=== PATIENT | female | born 1940 | race Caucasian/White ===

== ENCOUNTER 2022-06-01 11:30 | Outpatient (RCR) | payer MEDICARE, BC, SELFPAY | END 2022-06-03 08:44 | disposition home or self-care (01) | PROVIDERS: PCP Family Medicine; Visit Provider Family Medicine | DX: M54.16 Radiculopathy, lumbar region (principal); Z51.89 Encounter for other specified aftercare | CPT/HCPCS: 97110; 97112; 97140; 97162 ==

== ENCOUNTER 2023-08-10 11:30 | Outpatient (RCR) | payer MEDICARE, BC, SELFPAY ==
--- NOTE | 2023-05-05 17:25 | PT.OPEX ---
PT [facility] Outpatient Eval PT [facility] Outpatient Eval Start: 05/05/23 10:54 Freq: Status: Active Protocol: Document 05/05/23 16:51 MARINA (Rec: 05/05/23 17:22 MARINA [id number]) E-signed By Zoe Forbes PT Physical Therapy Outpatient Evaluation Insurance Information Recert Due Date 08/02/23 Insurance Name Medicare B,Exmovere Cross/Exmovere Shield Insurance Information/Comments MEDICARE/BC Medical Diagnosis MECHANICAL LOW BACK PAIN M54.9 Treating Diagnosis SCIATICA R M54.31 DIFFICULTY WALKING R26.2 Referring MD TIANA SCHULTZ Subjective Subjective I FELL ON MY KNEES ABOUT A MONTH AGO AND THAT'S WHEN MY BACK REALLY GOT BAD. SHE REPORTS FALLING ON ICE THIS PAST WINTER WELL WITH MIN BACK DISCOMFORT. SHE HAS NOT BEEN ABLE TO WALK FOR EXERCISE AND IS NOW USING A SPC D/T THE PAIN. Pain Comments RIGHT GLUTEAL REGION Date of Last Physician Visit 04/05/23 Current Work Status Retired Occupation RETIRED Preferred Name [employer] Precautions Therapy Limitations/Systems Review Hearing Objective Other/Pertinent Objective Posture Assessment: LUMBAR ROM Flexion: WFL repeated flexion : *PAINFUL Extension: LIMITED EXT repeated ext: UNREMARKABLE OTHER THAN STIFFNESS Right Sidebend: WFL Left Sidebend: WFL LE MMT Hip flexion: R/L 4/5 Hip Extension: R/L 4-/5 Hip abduction: R/L 4-/5 knee extension: R/5 4+/5 Knee Flexion: R/L 4+/5 JOINT MOBILITY/PALPATION: RIGHT GLUTEAL/QUADRATUS MM SPASM AND PAIN SPECIAL TESTS Straight leg raise: (-) Crossed straight leg raise: (- ) Slump test: (-) SI/HIPI tests PAULA RIGHT (+) FADIR RIGHT (+) SCOUR (-) Gillet Test: (-) Gapping and Compression test: (-) TX: PRONE LYING X 3MIN SUPINE TRUNK ROTATION 3 X 15 SEC SUPINE SKTC R/L 3 X 15 SUPINE BRIDGE X 10 HOLD 3 SIDELYING CLAM X 10 STDG TRUNK EXT X 10 HOLD 3SEC Functional Test Performed & Score TU.2 TINETTI: Assessment Assessment/Impression PATIENT IS AN 82 YO REFERRED TO PHYSICAL THERAPY FROM DR. SCHULTZ TO EVAL AND TREAT MECHANICAL LOW BACK PAIN. PMHX INCLUDES BUT NOT LIMITED TO LEFT RADHA 2007, BILATERAL TKA, OSTEOPOROSIS, OA, HTN, [place], AND H/O FALLS. SHE LIVES WITH GRAND DTR AND GREAT GRAND KIDS IN A [place] WITH ALL HER NEEDS MET ON THE FIRST FLOOR AND ONE STEP TO NAVIGATE INTO THE HOME FROM THE GARAGE. SHE HAS RECENTLY EXPERIENCED AN ACUTE EXACERBATION OF HER BACK PAIN WITH SYMPTOMS OF SCIATICA RIGHT>LEFT. SHE HAS LIMITED HER WALKING B/C OF THE PAIN AND NOW USING A SPC FOR SAFETY WHERE SHE HAD NOT USED ANYTHING. SHE HAS FUNCTIONAL ROM FOR TRUNK ROM WITH PAIN WHEN RETURNING TO STDG FROM FWD FLEX. SHE HAS POINT TENDERNESS ABOUT HE PROXIMAL GLUTEAL MAX AND QUADRATUS LUMBORUM WITH HYPOMOBILITY NOTED BILATERAL ABOUT THE LUMBAR SPINE. HER PATIENT CENTERED GOAL IS TO BE ABLE TO RETURN TO WALKING FOR EXERCISE AND BE ABLE TO PLAY WITH GREAT GRANDCHILDREN. SHE IS APPROPRIATE FOR PHYSICAL THERAPY TO ADDRESS HER SYMPTOM MGMT, CORE/LE STRENGTHENING, AND FUNCTIONAL BALANCE TRAINING. SHE IS A FALL RISK EVIDENCED BY A TUG SCORE OF 21.2 AND TINETTI 13/28. Primary Functional Limitations WALKING STAIRS TRANSFERS BED MOBILITY STOOPING PROLONGED STDG Plan of Care Rehabilitation Potential Good Physical Therapy Goals IN 6-8 VISIT: 1. PATIENT WILL BE ABLE TO AMB REPORT <3/10 PAIN AND IMPROVE STRENGTH BY 1/2 GRADE TO RETURN TO AMB W/IN COMMUNITY WITH FAMILY AND PEERS. 2. PATIENT WILL TOLERATE LIGHT HOUSECLEANING INVOLVING PROLONGED STDG AND STOOPING SAFELY. 3. PATIENT WILL IMPROVE TINETTI SCORE FROM 13/28 TO 22 /28 TO REDUCE HER RISK FOR FALLS. 4. PATIENT WILL BE INDEPENDENT WITH HER HEP AND THE ABILITY TO PROGRESS. Coordination/Communication With Referral Source Treatment Plan/Direct Interventions Gait Training,Heat,Ice/Cold/ Vasopneumatic,Joint Mobilization,Manual Therapy, Neuromuscular Re-ed,Self-Care/ Home Management,Therapeutic Activities,Therapeutic Exercises,Traction (Mechanical ),Ultrasound Frequency/Duration 1X/WK FOR 6-8 WEEKS Patient Will Be Discharged From Therapy Completion of LTG(s), Independently Progressing Evaluation Billing Untimed Code Treatment Minutes 20 PT Eval No Charge No Complexity Moderate Certification Information Initial Certification Date 05/05/23 Ending Certification Date 08/02/23 Provider Signature Shows Agreement With POC & Medical Necessity Physician Signature & Date Requested Please Sign/Date Here Physician Comment/Change : Physician NPI Number #
== END 2023-08-31 11:58 | disposition home or self-care (01) ==
PROVIDERS: PCP Family Medicine; Visit Provider Family Medicine
DX: M54.9 Dorsalgia, unspecified (principal); M54.31 Sciatica, right side; R26.2 Difficulty in walking, not elsewhere classified; Z51.89 Encounter for other specified aftercare
CPT/HCPCS: 97110; 97140; 97162; 97535

== ENCOUNTER 2023-11-29 10:15 | Outpatient (CLI) | payer MEDICARE, BC, SELFPAY ==
--- NOTE | 2023-11-29 10:15 | FL_ITS ---
Patient: BARBARA MEDINA Facility:?[facility] Patient ID:?[id number] Site Patient ID:?[id number]. Site :?[id number] Study:?XRay-Hip Right INJECTION TO READ-11/29/2023 11:41:08 AM Ordering Physician:SHAKIR Final Report: Indication: Primary osteoarthritis of right hip, RT HIP PAIN Procedure : Informed consent was obtained. The site was marked. Time-out was performed. The skin of the right hip was cleansed with ChloraPrep. A sterile drape was placed. 8 cc of 1 percent lidocaine was administered for superficial anesthesia. Subsequently a 22 gauge spinal needle was introduced into the right hip joint under intermittent fluoroscopic guidance. Injection of 7 cc 1 percent lidocaine and 2 cc 40 milligram/cc Depo-Medrol into the right hip joint then performed. The needle was removed and hemostasis achieved with direct pressure. A dressing was placed. The patient tolerated the procedure well without immediate complication. Total fluoroscopy time 12 seconds. Impression: Successful fluoroscopically guided right hip injection with 80 milligrams of Depo-Medrol. Dictated by Gustavo Oh MD @ 11/29/2023 11:58:34 AM Signed by:?Gustavo Oh MD @11/29/2023 11:58:34 AM (Electronic Signature)
== END 2023-11-29 10:16 | disposition home or self-care (01) ==
LOC: RAD 10:17
PROVIDERS: PCP Family Medicine; Visit Provider Radiology Diagnostic Radiology
DX: M25.551 Pain in right hip (principal); M16.11 Unilateral primary osteoarthritis, right hip
CPT/HCPCS: 20610; 77002; Q9966

== ENCOUNTER 2024-03-25 14:54 | Outpatient (RCR) | payer SELFPAY | END 2025-03-25 11:14 | disposition home or self-care (01) | LOC: MOW 14:54 | PROVIDERS: PCP Family Medicine; Visit Provider Family Medicine | DX: Z76.0 Encounter for issue of repeat prescription (principal) | CPT/HCPCS: S5170 ==

== ENCOUNTER 2024-06-06 13:45 | Outpatient (RCR) | payer MEDICARE, BC, SELFPAY | END 2024-10-04 23:59 | disposition home or self-care (01) | PROVIDERS: PCP Family Medicine; Visit Provider Physician Assistant | DX: M16.11 Unilateral primary osteoarthritis, right hip (principal); Z96.641 Presence of right artificial hip joint; M25.551 Pain in right hip; M62.81 Muscle weakness (generalized); R26.9 Unspecified abnormalities of gait and mobility; R26.81 Unsteadiness on feet; Z51.89 Encounter for other specified aftercare | CPT/HCPCS: 97110; 97112; 97161 ==